=== PATIENT | female | born 1960 | race Caucasian/White ===

== ENCOUNTER → 2018-01-05 13:30 | Outpatient (CLI) | payer MEDICAID | END | disposition home or self-care (01) | LOC: D.US 13:30 | DX: N85.2 Hypertrophy of uterus (principal) ==

== ENCOUNTER → 2018-02-15 18:24 | Outpatient (CLI) | payer MEDICAID | END | disposition home or self-care (01) | LOC: D.MAMMO 01-21 14:00 | DX: Z12.31 Encounter for screening mammogram for malignant neoplasm of breast (principal) ==

== ENCOUNTER → 2018-07-13 09:32 | Outpatient (CLI) | payer MEDICAID | END | disposition home or self-care (01) | LOC: D.MRI 09:32 | DX: M25.551 Pain in right hip (principal); M54.16 Radiculopathy, lumbar region ==

== ENCOUNTER → 2018-10-19 08:04 | Outpatient (CLI) | payer MEDICAID | END | disposition home or self-care (01) | LOC: D.US 08:00 | DX: N93.9 Abnormal uterine and vaginal bleeding, unspecified (principal) ==

== ENCOUNTER → 2018-10-26 08:21 | Outpatient (CLI) | payer MEDICAID | END | disposition home or self-care (01) | LOC: D.MRI 08:21 | DX: M25.562 Pain in left knee (principal) ==

== ENCOUNTER → 2018-12-06 06:34 | Outpatient (CLI) | payer MEDICAID | END | disposition home or self-care (01) | LOC: D.MRI 06:34 | DX: M54.2 Cervicalgia (principal) ==

== ENCOUNTER 2019-07-18 10:30 | Outpatient (CLI) | payer MEDICAID | END 2019-07-18 11:00 | disposition home or self-care (01) | LOC: D.MAMMO 10:30 | PROVIDERS: ATTEND Family Medicine | DX: Z12.31 Encounter for screening mammogram for malignant neoplasm of breast (principal) ==

== ENCOUNTER → 2019-09-12 07:49 | Outpatient (CLI) | payer MEDICAID ==
[~2019-09-12 07:49] MED LIST: ARAVA10 MG PO; BUSPAR 15 MG TA15 MG PO; COZAAR100 MG PO; CYCLOBENZAPRINE10 MG PO; ESTRACE2 MG PO; HYDROCHLOROTH12.5 M1 PO; HYDROCODON-ACE1 EA10 PO; HYDROXYCHLOROQUINE S PO; LAMICTAL100 MG PO; LIPITOR20 MG PO; LYRICA75 MG PO; OMEPRAZOLE40 MG PO; PROVERA2.5 MG PO; RESTORIL15 MG PO; SEROQUEL50 MG PO; SPIRIVA18 MCG INH
--- NOTE | 2019-09-14 12:49 | ST ---
PATIENT:ROXY WILSON MEDICAL RECORD: [id number] SEX: F LOCATION:[facility] ORDER #: ADMISSION DATE: 09/12/19 AGE OF PATIENT: 59 REFERRING PHYSICIAN: INTERPRETING PHYSICIAN: JERMAINE MILLER MD DATE OF SERVICE: 09/12/2019 Nuclear Stress Test INDICATIONS: Angina, hypertension, and hyperlipidemia. The patient was exercised on standard Lexiscan protocol with 33 mCi of sestamibi injected at peak stress, 11 mCi used previously for rest images. FINDINGS: Gated SPECT reveals a preserved ejection fraction of 68% with decreased thickening and brightening throughout the inferior segments. SPECT Imaging: Cardiolite was used as myocardial perfusion agent. There is a fixed perfusion defect inferiorly compatible with previous inferior myocardial infarction; however, there is reversible ischemia anteriorly and septally, which includes basal, mid, apical anterior segments, apical septal, mid septal and basal septal. The degree of reversibility is moderate. The amount of myocardium involved between the 2 defects is large. OVERALL IMPRESSION: Intermediate-risk abnormal nuclear stress test, fixed perfusion defect inferiorly, reversible ischemia ongoing anteroseptally suggestive of multivessel coronary artery disease. TRANSINT:[id number] Voice Confirmation ID: [id number] DOCUMENT ID: [id number] JERMAINE MILLER MD at 1249 CC: CHLOE BAUMAN DO [id number] DICTATION DATE: 09/13/19 1548 GOLF STARTER AND RANGER: 09/13/19 2256 DEP CLI 09/12/[address] [address]
[2019-09-25 11:25] VITALS: BMI 30.8
== END | disposition home or self-care (01) ==
LOC: D.HCCARDIO 07:49
PROVIDERS: ATTEND Internal Medicine Interventional Cardiology
DX: I20.9 Angina pectoris, unspecified (principal)

== ENCOUNTER → 2019-09-21 14:16 | Outpatient (CLI) | payer MEDICAID ==
--- NOTE | 2019-09-22 12:01 | EC ---
PATIENT:ROXY WILSON DATE OF SERVICE: 09/21/19 SEX: F MEDICAL RECORD: [id number] DATE OF : 62 [facility] AGE OF PATIENT: 59 ADMISSION DATE: 09/21/19 REFERRING PHYSICIAN: INTERPRETING PHYSICIAN: GRACIE CARRANZA MD ECHOCARDIOGRAM REPORT ECHO CHARGES 4 ECHO COMPLETE Date: 09/21/19 CLINICAL DIAGNOSIS: ANGINA H/O HTN/PVD ECHOCARDIOGRAPHIC MEASUREMENTS (adult normal given) AC root (d.<3.7cm) 2.6 cm LV Septum d (<1.2 cm> 1.1 cm Valve Excursion 1.7 cm LV Septum (systole) 1.5 cm Left Atria (s.<4.0cm> 4.2 cm LVPW d(<1.2cm) 1.3 cm RV (d.<2.3cm) 2.6 cm LVPW (sytole) 1.7 cm LV diastole(<5.6CM) 4.4 cm MV E-F(>70mm/sec) cm LV systole 2.9 cm LVOT Diameter 1.9 cm MV exc.(>10mm) cm Est.ejection fraction (50-75%) % DOPPLER: LVIT cm/sec A 79.0 cm/sec E 48.0 cm/sec LA cm/sec RVSP 37.0 mmHg LVOT 101 cm/sec AOP1/2T m/s Asc. Ao 180 cm/sec RVOT 74.0 cm/sec RA cm/sec PA 106 cm/sec AV Gradient Peak 13.0 mmHg AV Mean 7.2 mmHg AV Area 1.6 cm MV Gradient Peak 3.0 mmHg MV Mean 1.3 mmHg MV Area cm COMMENTS: OP - HC Supervisor Wire Rope Fabrication: 1 RAYMUNDO NURIA Receiving Teller: 3 Dr. Stewart TAPE# PACS Pericardial Effusion N DATE OF SERVICE: Adequate 2D, color-flow and spectral Doppler, and M-mode. No LVH. LV internal dimensions are normal. Wall motion is normal. EF is greater than or equal to 55%. Aortic valve is tricuspid. No evidence of stenosis by Doppler interrogation. Left atrium is minimally dilated at 4.2 cm. Mitral valve shows no prolapse. Trace MR. Right-sided chambers are grossly normal. Trace TR. ECHOCARDIOGRAM REPORT [id number] ROXY WILSON TRANSINT:[id number] Voice Confirmation ID: [id number] DOCUMENT ID: [id number] GRACIE CARRANZA MD at 1201 CC: [id number] DICTATION DATE: 09/21/19 162 PAN PULLER: 09/21/191937 DEP CLI 09/21/19 [facility] [address] [id number]
[2019-09-25 11:25] VITALS: BMI 30.8
== END | disposition home or self-care (01) ==
LOC: D.HCCECHO 09-06 14:30
PROVIDERS: ATTEND Internal Medicine Interventional Cardiology
DX: I10 Essential (primary) hypertension (principal)

== ENCOUNTER 2019-09-25 10:47 | Outpatient (CLI) | payer MEDICAID ==
[~2019-09-25] VITALS: Ht 157.5 cm; Wt 76.4 kg
--- NOTE | ~2019-09-25 | HEMODYNAMI ---
PATIENT:ROXY WILSON MEDICAL RECORD: [id number] : 62 LOCATION:D.CAT ADMISSION DATE: 09/25/19 Generatedon:09/25/201914:13 Patient name: ROXY WILSON Patient #: [id number] : 1960 Date of study: 09/25/2019 Page: Of Hemodynamic Procedure Report Patient Data Patient Demographics Procedure consent was obtained First Name: ROXY Gender: Female Last Name: STEVE : 1960 [facility] Initial: MARISA Age: 59 year(s) Patient #: [id number] Race: Unknown SSN: [id number] Additional ID: [id number] Contact details Address: [address] [place] [address] State: [place] City: [place] Zip code: [address] Past Medical History Allergies: No known allergies Admission Admission Data Admission Date: 09/25/2019 Admission Time: 10:47 Arrival Date: 09/25/2019 Arrival Time: 0:00 Admit Source: Other Insurance Payor: Private health insurance [facility] #: [id number] Height (in.): 61.81 BSA: 1.77 (m2) Height (cm.): 157 BMI: 30.83 (kg/m2) Weight (lbs.): 167.55 Weight (kg.): 76 Lab Results Lab Result Date: 09/25/2019 Lab Result Time: 0:00 Biochemistry Name Units Result Min Max BUN mg/dl 7 --(*---)-- 7 18 Creatinine mg/dl 0.7 --(*---)-- 0.6 1.3 CBC Name Units Result Min Max Hemoglobin g/dl 12.7 -*(----)-- 13.5 17.5 Procedure Procedure Types Cath Procedure Diagnostic Procedure LHC LHC w/Coronaries Sedation Charges Moderate Sedation up to 15 minutes Procedure Description Procedure Date Procedure Date: 09/25/2019 Procedure Start Time: 13:48 Procedure End Time: 14:11 Procedure Staff Name Function Jocelyne Loza MD Ordering physician Brayden Pagan MD Performing Physician Elli Olivares RT Monitor Nga Hyatt RN Nurse Claribel Mg RT Scrub Nubia Eugene RT Scrub Procedure Data Cath Procedure Fluoroscopy Diagnostic fluoroscopy Total fluoroscopy Time: 5.6 time: 5.6 min min Diagnostic fluoroscopy Total fluoroscopy dose: 704 dose: 704 mGy mGy Contrast Material Contrast Material Type Amount (ml) Isovue 300 106 Entry Location Entry Primary Successful Side Size Upsize Upsize Entry Closure Dunham ccessful Closure Location (Fr) 1 (Fr) 2 (Fr) Remarks Device Remarks Radial Right 6 Fr Mechanical artery Short Compression Estimated blood loss: 5 ml Diagnostic catheters Device Type Used For End Catheter Placement DIAGNOSTIC [place] 110cm 5 Procedure Fr catheter (008093) DIAGNOSTIC JL 3.5 5Fr Procedure catheter ([id number]) DIAGNOSTIC Pigtail 5Fr Ventriculography catheter ([id number]) Procedure Complications No complications Procedure Medications Medication Administration Route Dosage 0.9% NaCl I.V. 100 ml/hr Oxygen etCO2 Nasal cannula 2 l/min Lidocaine 2% added to field 20 Heparin Flush Bag added to field 2 bags (1000units/500ml NS) Radial Cocktail added to field 1 syringe (Verapamil 2mg/Nitro 400mcg/Heparin 1500units) Versed I.V. 2 mg Fentanyl I.V. 50 mcg Fentanyl I.V. 50 mcg Hemodynamics Rest BSA: 1.77 (m2) HGB: 12.7 (g/dl) O2 Consumption: Estimated: 176.37 (ml/min) O2 Co nsumption indexed: Estimated:99.64 (ml/min/m) Heart Rate: 81 (bpm) Pressure Samples Time Site Value (mmHg) Purpose Heart Use Rate(bpm) 13:57 LV 96/13,11 Snapshot 83 Snapshots Pre Cath Intra NCS Post Cath Vital Signs Time Heart Resp SPO2 etCO2 NIBP (mmHg) Rhythm Pain Sedation Rate (ipm) (%) (mmHg) Status Level (bpm) 13:36:29 84 10 96 31 123/90(117) NSR 0 (11) 10(A) , No pain 13:41:28 86 10 99 37.3 Measuring NSR 0 (11) 10(A) , No pain 13:41:31 87 11 99 37.3 142/85(129) NSR 0 (11) 10(A) , No pain 13:45:47 81 21 98 33.6 137/79(118) NSR 0 (11) 10(A) , No pain 13:50:03 81 24 97 28.3 117/69(91) NSR 0 (11) 10(A) , No pain 13:54:15 82 21 97 35 115/65(86) NSR 0 (11) 10(A) , No pain 13:58:27 86 25 98 17.9 91/62(72) NSR 0 (11) 10(A) , No pain 14:03:11 85 18 96 43.2 119/78(107) NSR 0 (11) 10(A) , No pain 14:07:21 73 16 97 35 137/73(112) NSR 0 (11) 10(A) , No pain 14:11:33 84 17 98 41 134/76(109) NSR 0 (11) 10(A) , No pain Medications Time Medication Route Dose Verified Delivered Reason Notes E ffectiveness by by 13:39:03 0.9% NaCl I.V. 100 Brayden Sylvester used for ml/hr Ej Edmar procedure MD PERKINS 13:39:11 Oxygen etCO2 2 l/min Brayden Sylvester used for Nasal Ej Edmar procedure cannula MD PERKINS 13:39:15 Lidocaine 2% added 20ml Brayden Owen for local to vial Ej Ej anesthetic field MD SHARMA 13:39:19 Heparin Flush added 2 bags Brayden Owen used for Bag to Ej Ej procedure (1000units/500ml field MD SHARMA NS) 13:39:25 Radial Cocktail added 1 Brayden Owen used for (Verapamil to syringe Ej Ej procedure 2mg/Nitro field MD SHARMA 400mcg/Heparin 1500units) 13:39:39 Versed I.V. 2 mg Brayden Nga for Ej Edmar sedation MD PERKINS 13:39:44 Fentanyl I.V. 50 mcg Brayden Arredondoa for Ej Edmar sedation MD PERKINS 13:46:53 Fentanyl I.V. 50 mcg Brayden Arredondoa for Ej Edmar sedation MD PERKINSradiochemical technician Log Time Note 13:27:17 Informed consent obtained and on chart 13:30:04 Admit Source: Other 13:30:07 Arrival Date: 09/25/2019 12:00:00 AM 13:30:38 Insurance Payor : Private health insurance 13:33:31 Patient Height : 61.81 inches 13:33:34 Patient Weight : 167.55 lbs 13:34:08 Lab Result : Hemoglobin 12.7 g/dl 13:34:08 Lab Result : Creatinine 0.7 mg/dl 13:34:08 Lab Result : BUN 7 mg/dl 13:34:14 Diagnostic Cath Status : Elective 13:34:52 Procedure Status Elective Heart Cath (OP). 13:34:57 Nga Hyatt RN sent for patient. Start room use. 13:34:58 Time tracking: Regular hours (M-F 7:00 - 5:00) 13:35:03 Plan of Care:Hemodynamics will remain stable., Cardiac rhythm will remain stable., Comfort level will be maintained., Respiratory function will remain adequate., Patient/ family verbilizes understanding of procedure., Procedure tolerated without complication., Recovers from procedure without complications.. 13:35:18 Patient received from Pre/Post Procedure Room to CCL 2 Alert and oriented. Tansferred to table in Supine position. 13:35:20 Warm blankets applied, and sang hugger turned on for patient comfort. 13:35:20 Correct patient and procedure confirmed by team. 13:35:22 ECG and BP/O2 sat monitors applied to patient. 13:35:26 Vital chart was started 13:35:31 Full Disclosure recording started 13:35:36 H&P Date Dictated: 09/25/2019 Within 30 days and on chart.. 13:35:38 Pre-procedure instructions explained to patient. 13:35:40 Family in waiting room. 13:35:42 Patient NPO since Midnight. 13:35:50 Patient allergic to No known allergies 13:35:54 Is the patient allergic to Iodine/contrast media? No. 13:35:55 Was the patient premedicated? Yes 13:36:03 Is patient on blood thinner?No 13:36:17 Patient diabetic? No. 13:36:23 Snore? Yes 13:36:26 Sleep apnea? No 13:36:34 Patient pain scale 0/10 .. 13:36:49 IV patent on arrival in left forearm with 0.9% NaCl at [facility]. 13:36:54 Lab results completed and on chart. 13:38:08 Stress Test: yes; abnormal ? 13:38:14 Physician arrived 13:38:15 --------ALL STOP TIME OUT------ 13:38:19 Final Timeout: patient, procedure, and site verified with staff and physician. All members of the team are in agreement. 13:38:21 Right Radial & Right Groin site verified by team. 13:38:25 Fire Safety Assessment: A--An alcohol-based skin anteseptic being used preoperatively., C--Open oxygen or nitrous oxide is being used., D--An ESU, laser, or fiber-optic light is being used. 13:38:30 Physical assessment completed. ASA score P 3 - A patient with severe systemic disease as per Brayden Pagan MD. 13:38:38 1) 90+ Normal kidney functon but urine findings or structural abnormalities or genetic trait point to kidney disease. 13:38:52 Maximum allowable contrast dose (3.7 X eGFR X 0.75)250 ml. 13:38:58 Sedation plan: IV Moderate Sedation Medication:Versed, Fentanyl 13:39:03 0.9% NaCl 100 ml/hr I.V. was administered by Nga Hyatt RN; used for procedure; Verbal order read back and verified. 13:39:09 Use device set Radial Dx or PCI 13:39:10 ACIST Syringe (90966) opened to sterile field. 13:39:11 Oxygen 2 l/min etCO2 Nasal cannula was administered by Nga Hyatt RN; used for procedure; Verbal order read back and verified. 13:39:11 Medline Cath Pack (MDQL20432) opened to sterile field. 13:39:11 Bag Decanter () opened to sterile field. 13:39:12 ACIST Hand Control (61626) opened to sterile field. 13:39:12 ACIST Manifold (82812) opened to sterile field. 13:39:13 Tegaderm 4 x 4 (1626W) opened to sterile field. 13:39:14 MBrace Wrist Support (376913911) opened to sterile field. 13:39:15 Lidocaine 2% 20ml vial added to field was administered by Brayden Pagan MD; for local anesthetic; Verbal order read back and verified. 13:39:17 EMERALD Guide Wire (586-634) opened to sterile field. 13:39:18 SHEATH 6FR RAIN (5832672) opened to sterile field. 13:39:19 Heparin Flush Bag (1000units/500ml NS) 2 bags added to field was administered by Brayden Pagan MD; used for procedure; Verbal order read back and verified. 13:39:25 Radial Cocktail (Verapamil 2mg/Nitro 400mcg/Heparin 1500units) 1 syringe added to field was administered by Brayden Pagan MD; used for procedure; Verbal order read back and verified. 13:39:39 Versed 2 mg I.V. was administered by Nga Hyatt RN; for sedation; Verbal order read back and verified. 13:39:44 Fentanyl 50 mcg I.V. was administered by Nga Hyatt RN; for sedation; Verbal order read back and verified. 13:46:53 Fentanyl 50 mcg I.V. was administered by Nga Hyatt RN; for sedation; Verbal order read back and verified. 13:48:21 Procedure started. 13:49:23 Baseline sample Acquired. 13:49:46 Sharps counted by scrub and verified by R.N. 13:49:55 Right Radial & Right Groin area was prepped with chlora-prep and draped in sterile fashion 13:51:36 Zero performed for pressure channel P1 13:51:40 Zero performed for pressure channel P1 13:55:27 A 6 Fr Short sheath was inserted into the Right Radial artery 13:56:28 A DIAGNOSTIC [place] 110cm 5 Fr catheter (810305) was advanced over the wire and used for Procedure. 14:00:19 LV gram done using CIFUENTES 14:00:31 EF : 55 % 14:01:02 RCA angiography performed. 14:01:03 Catheter removed. 14:02:13 A DIAGNOSTIC JL 3.5 5Fr catheter (247496M) was advanced over the wire and used for Procedure. 14:02:21 LCA angiography performed. 14:04:28 Catheter removed. 14:04:44 A DIAGNOSTIC Pigtail 5Fr catheter (510361F) was advanced over the wire and used for Ventriculography. 14:05:04 LV gram done using CIFUENTES 14:08:10 Catheter removed. 14:08:25 Sheath removed intact; hemostasis achieved with Mechanical Compression to the Right Radial artery. 14:08:33 ZEPHYR REGULAR TR BAND (153072) opened to sterile field. 14:08:38 Procedure ended.(Physican Out) 14:10:00 Fluoroscopy time 05.60 minutes. 14:10:05 Fluoroscopy dose: 704 mGy 14:10:05 Flurop Dose total: 704 14:10:10 Dose Area Product 58173 mGy/cm. 14:10:14 Contrast amount:Isovue 300 106ml. 14:10:17 Maximum allowable dose exceeded? No. 14:10:18 Sharps counted by scrub and verified by R.N. 14:10:20 Bramwell band inflated with 12cc of air. 14:10:23 Insertion/operative site no bleeding no hematoma. 14:10:28 Post-op/insertion site Right Radial artery dressed using a 4 x 4 and Tegaderm. 14:10:35 Post right radial artery:stable 14:10:37 Post Procedure Pulses reassessed and unchanged 14:10:44 Post-procedure physical assessment completed. ASA score P 2 - A patient with mild systemic disease as per Brayden Pagan MD. 14:10:55 Post procedure rhythm: unchanged. 14:10:58 Estimated blood loss: 5 ml 14:11:00 Post procedure instruction explained to patient.Patient verbalizes understanding. 14:11:18 Procedure type changed to Cath procedure, Diagnostic procedure, LHC, LHC w/Coronaries, Sedation Charges, Moderate Sedation up to 15 minutes 14:11:20 Procedure and supply charges have been captured, reviewed, submitted and are correct. 14:11:42 Procedure Complication : No complications 14:11:44 Vital chart was stopped 14:11:47 Operative report dictated upon procedure completion. 14:11:48 See physician's report for complete and final results. 14:11:50 Report given to Pre/Post Procedure Room. 14:11:54 Patient transfered to Pre/Post Procedure Room with Stretcher. 14:11:56 Procedure ended. 14:11:56 Full Disclosure recording stopped 14:12:01 End room use (Document Last) 14:12:24 End room use (Document Last) 14:12:57 End room use (Document Last) Device Usage Item Name Manufacture Quantity Catalog Hospital Part Current Minima l Lot# / Number Charge Number Stock Stock Serial# Code [place] [address] 63160 138914 509884 233306 20 Syringe Medical (12400) Systems Inc Medline Medline 1 [id number] 603253 78758 223304 5 Cath Pack (ROHF12245) Bag Microtek 1 2001S 385562 22870 743131 5 Decanter Medical Inc. (2001S) ACIST Hand Acist 1 02550 335214 921774 929789 5 Control Medical (58687) Systems Inc ACIST Acist 1 07503 418600 793186 975608 5 Manifold Medical (23136) Systems Inc Tegaderm 4 3M 1 1626W 699122 138038 753573 5 x 4 (1626W) MBrace Advanced 1 140-0250-00 016076 74990 380340 5 Wrist Vascular Support Dynamics ([id number]) EMERALD Cardinal 1 502-455 249535 617612 600949 5 Guide Wire Health (621-455) SHEATH 6FR Cardinal 1 1341288 891810 2913557 946280 5 [facility] Health (0133050) DIAGNOSTIC Terumo 1 40-1477 400347 184649 415990 5 [place] 110cm 5 Fr catheter (389267) DIAGNOSTIC Cardinal 1 256665M 823135 203515 323885 5 JL 3.5 5Fr Health catheter (930814J) DIAGNOSTIC Cardinal 1 [id number] 713611 148970 660858 5 Pigtail 5Fr Health catheter (662382Y) ZEPHYR Cardinal 1 864788 160204 7844319 985727 5 REGULAR TR Health BAND (867741) Signature Audit Tanana Stage Time Signature Unsigned Intra-Procedure 09/25/2019 Elli Olivares 2:12:24 PM RT(R) Intra-Procedure 09/25/2019 Nga Hyatt 2:12:57 PM RN Intra-Procedure 09/25/2019 Brayedn Gilmore 2:13:23 PM Fox SHARMA Signatures Performing Physician : Signature : Brayden Pagan MD Date : Time : Monitor : Elli Olivares Signature : RT Date : Time : Nurse : Nga Hyatt RN Signature : Date : Time : [address] [address] [place] [address]
[2019-09-25] MEDS ORDERED: LYRICA75 MG PO (11:01)
[2019-09-25] MEDS ORDERED: RESTORIL15 MG PO (11:01)
[2019-09-25] MEDS ORDERED: HYDROCODON-ACE1 EA10 PO (11:01)
[2019-09-25] MEDS ORDERED: OMEPRAZOLE40 MG PO (11:02)
[2019-09-25] MEDS ORDERED: PROVERA2.5 MG PO (11:02)
[2019-09-25] MEDS ORDERED: COZAAR100 MG PO (11:02)
[2019-09-25] MEDS ORDERED: SEROQUEL50 MG PO (11:02)
[2019-09-25] MEDS ORDERED: SPIRIVA18 MCG INH (11:03)
[2019-09-25] MEDS ORDERED: ESTRACE2 MG PO (11:03)
[2019-09-25] MEDS ORDERED: CYCLOBENZAPRINE10 MG PO (11:03)
[2019-09-25] MEDS ORDERED: ARAVA10 MG PO (11:04)
[2019-09-25] MEDS ORDERED: HYDROCHLOROTH12.5 M1 PO (11:04)
[2019-09-25] MEDS ORDERED: BUSPAR 15 MG TA15 MG PO (11:04)
[2019-09-25] MEDS ORDERED: LIPITOR20 MG PO (11:05)
[2019-09-25] MEDS ORDERED: LAMICTAL100 MG PO (11:05)
[2019-09-25] MEDS ORDERED: HYDROXYCHLOROQUINE S PO (11:12)
[2019-09-25 11:25] VITALS: BP 110/84; Ht 157.5 cm; Wt 76.4 kg
[2019-09-25 11:45] LABS: BASOPHILS 0.3 % (0-2); EOSINOPHILS 3.6 % (0-7); HEMOGLOBIN 12.7 g/dL (12-16); IMMATURE GRANULOCYTES 0.2 % (0-5); LYMPHOCYTES 30.2 % (15-50); MCH 29.6 pg (26.0-34.0); MCHC 32.6 g/dL (31.0-37.0); MCV 90.9 fL (80.0-100.0); MEAN PLATELET VOLUME 11.2 fL (7.4-10.4); MONOCYTES 11.3 % (2-11); NEUTROPHILS 54.4 % (40-80); PLATELET COUNT 181 10x3/uL (130-400); RBC 4.29 10x6/uL (4.00-5.40); RDW 13.9 % (11.5-14.5); WBC 5.8 10x3/uL (4.8-10.8)
[2019-09-25 11:52] LABS: CALC OSMOLALITY 282 mosm/kg (275-300); CALCIUM 8.8 mg/dL (8.5-10.1); CARBON DIOXIDE 29.7 mmol/L (21.0-32.0); CHLORIDE - SERUM 106 mmol/L (98-107); CREATININE - SERUM 0.7 mg/dL (0.6-1.3); GLUCOSE 95 mg/dL (74-106); POTASSIUM - SERUM 3.7 mmol/L (3.5-5.1); SODIUM 143 mmol/L (136-145); UREA NITROGEN 7 mg/dL (7-18); eGFR NON AFRICAN AMERICAN > 90 mL/min (90-120)
[2019-09-25 12:23] LABS: CHOL - HDL RATIO 2.5 ratio (2.3-4.1); LDL-HDL RATIO 1.3 ratio (1.5-3.5)
--- NOTE | 2019-09-25 14:25 | NUR ---
PT ARRIVED BY BED. PLACED ON MONITORS. NO FAMILY AT BEDSIDE AT THIS TIME. VSS. ASSESSMENT COMPLETED. CALL LIGHT WITHIN REACH.
--- NOTE | 2019-09-25 14:40 | NUR ---
PT SITTING UP IN BED. WATCHING TELEVISION. VSS. RIGHT WRIST Z BAND IN PLACE. NO BLEEDING/HEMATOMA NOTED. CALL LIGHT WITHIN REACH. SET UP WITH DRINK AND SANDWICH TRAY AT THIS TIME.
--- NOTE | 2019-09-25 15:15 | NUR ---
2cc OF AIR REMOVED FROM Z BAND. TOLERATING WELL. VSS. NO S/S OF BLEEDING/HEMATOMA NOTED.
--- NOTE | 2019-09-25 15:30 | NUR ---
2cc OF AIR REMOVED FROM Z BAND. TOLERATING WELL. VSS. NO BLEEDING/HEMATOMA NOTED. CALL LIGHT WITHIN REACH. FAMILY AT BEDSIDE.
--- NOTE | 2019-09-25 15:45 | NUR ---
3cc OF AIR REMOVED FROM Z BAND. NO BLEEDING/HEMATOMA NOTED. CALL LIGHT WITHIN REACH. FAMILY AT BEDSIDE. DR. CARRANZA ROUNDED AND SPOKE WITH PT AND PT'S FAMILY.
--- NOTE | 2019-09-25 15:55 | NUR ---
3cc OF AIR REMOVED FROM Z BAND. NO BLEEDING/HEMATOMA NOTED. VSS. CALL LIGHT WITHIN REACH.
--- NOTE | 2019-09-25 16:10 | NUR ---
RIGHT WRIST Z BAND REMOVED AND DRESSING APPLIED. NO BLEEDING/HEMATOMA NOTED. RIGHT WRIST BRACE IN PLACE. PIV D/C'D WITH CATH TIP INTACT. TOLERATED WELL. PT INSTRUCTED TO GET UP AND DRESSED. DISCUSSED DISCHARGE INSTRUCTIONS WITH PT AND PT'S FAMILY. THEY VOICED UNDERSTANDING. PT GIVEN DOCTORS EXCUSE FOR WORK.
--- NOTE | 2019-09-25 16:25 | NUR ---
PT TO RESTROOM. VOIDED WITHOUT DIFFICULTY. RIGHT WRIST DRESSING C/D/I. NO S/S OF HEMATOMA NOTED. PT TAKEN OUT TO VEHICLE BY WHEELCHAIR. NO S/S OF DISTRESS NOTED. ALL BELONGINGS AND PAPERWORK IN HAND, INCLUDING WORK EXCUSE.
--- NOTE | 2019-09-26 14:43 | OP ---
PATIENT NAME: ROXY WILSON MEDICAL RECORD: [id number] :62 LOCATION:D.CAT ADMISSION DATE: SURGEON: GRACIE CARRANZA MD DATE OF OPERATION: 09/25/2019 PROCEDURE: Left heart catheterization, selective coronary angiography, right radial approach. CATHETERS: Gadsden catheter, radial sheath. The procedure was well tolerated. The patient returned to boyd. Sheath removed. TR band was placed. FINDINGS: Left ventriculography in 30-degree CIFUENTES view: Normal wall motion, normal systolic function. There was some staining of the myocardium with the Gadsden catheter. However, repeat LV gram with a pigtail catheter showed no evidence of any VSD or pericardial leak. CORONARY ANATOMY: LEFT MAIN: Left main is free of disease. LAD: Free of disease in the diagonal system. CIRCUMFLEX: Free of disease in the marginal system. RIGHT CORONARY ARTERY: Dominant artery, gives rise to PDA, free of disease. IMPRESSION: Normal LV systolic function, normal coronary anatomy. TRANSINT:[id number] Voice Confirmation ID: [id number] DOCUMENT ID: [id number] GRACIE CARRANZA MD at 1443 CC: [id number] DICTATION DATE: 09/25/19 1423 CASHIER CREDIT: 09/25/19 1522 DEP CLI 09/25/19 [facility] [address] [place] [address]
--- NOTE | 2019-09-26 14:43 | HP ---
PATIENT: ROXY WILSON MEDICAL RECORD: [id number] ACCOUNT: [id number] LOCATION:[facility] : 62 ADMISSION DATE: 09/25/19 PCP: CHLOE BAUMAN DO HISTORY AND PHYSICAL EXAMINATION HISTORY OF PRESENT ILLNESS: A 59-year-old female with history of hypertension, dyslipidemia been having progressive angina symptomatology over the past few months, progressed to the point with minimal exertion easily with class III symptoms. Nuclear stress testing which shows reversibility 2-vessel disease consistent with LAD and right. We are asked to see her concerning her cardiovascular status. Also, has history of peripheral vascular disease previously. PAST MEDICAL HISTORY: Includes; 1. History of PVD. 2. Hypertension. 3. Hyperlipidemia. MEDICATIONS: Include Lipitor 20 every day, BuSpar 15 b.i.d., Flexeril 10 t.i.d. p.r.n., hydrochlorothiazide 12.5 every day, Pray 5/325 every day, losartan 100 every day. ALLERGIES: None known. PHYSICAL EXAMINATION: GENERAL: Pleasant female in no acute distress, appears stated age. HEENT: Normocephalic, atraumatic. NECK: No JVD or bruit. HEART: Regular. LUNGS: Abbott clear. ABDOMEN: Soft, nontender. EXTREMITIES: Pulse 2+. No edema. IMPRESSION: Progressive angina. Nuclear stress testing consistent with 2-vessel disease, angiography, intervention based on the above. TRANSINT:[id number] Voice Confirmation ID: [id number] DOCUMENT ID: [id number] GRACIE CARRANZA MD at 1443 CC: [id number] DICTATION DATE: 09/25/19 1327 TERRAZZO WORKER: 09/25/19 1401 DEP CLI 09/25/19 [id number] [place] [address]
== END 2019-09-25 14:25 | disposition home or self-care (01) ==
LOC: D.CATH 10:47
PROVIDERS: ATTEND Internal Medicine Interventional Cardiology
DX: I20.9 Angina pectoris, unspecified (principal); I10 Essential (primary) hypertension; E78.5 Hyperlipidemia, unspecified; R94.30 Abnormal result of cardiovascular function study, unspecified

== ENCOUNTER 2019-11-15 11:02 | Outpatient (CLI) | payer OTHER ==
[~2019-11-15] VITALS: Ht 157.5 cm; Wt 77.3 kg
--- NOTE | ~2019-11-15 | HEMODYNAMI ---
PATIENT:ROXY WILSON MEDICAL RECORD: [id number] : 62 LOCATION:D.CAT ADMISSION DATE: 11/15/19 Generatedon:11/15/201913:46 Patient name: ROXY WILSON Patient #: [id number] : 1960 Date of study: 11/15/2019 Page: Of Hemodynamic Procedure Report Patient Data Patient Demographics Procedure consent was obtained First Name: ROXY Gender: Female Last Name: STEVE : 1960 [facility] Initial: MARISA Age: 59 year(s) Patient #: [id number] Race: Unknown SSN: [id number] Additional ID: [id number] Contact details Address: [address] [place] [address] State: [place] City: [place] Zip code: [address] Past Medical History Allergies: No known allergies Admission Admission Data Admission Date: 11/15/2019 Admission Time: 11:02 Procedure Procedure Types Cath Procedure Diagnostic Procedure Sedation Charges Moderate Sedation up to 15 minutes Peripheral Cath 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 Peripheral Procedures AFRO (Diagnostic) Procedure Description Procedure Date Procedure Date: 11/15/2019 Procedure Start Time: 13:37 Procedure End Time: 13:45 Procedure Staff Name Function Brayden Pagan MD Performing Physician Claribel Mg RT Monitor Elli Olivares RT Scrub Nga Hyatt RN Nurse Indication Angina Procedure Data Cath Procedure Fluoroscopy Diagnostic fluoroscopy Total fluoroscopy Time: 0.7 time: 0.7 min min Diagnostic fluoroscopy Total fluoroscopy dose: 159 dose: 159 mGy mGy Contrast Material Contrast Material Type Amount (ml) Isovue 300 54 Entry Location Entry Primary Successful Side Size Upsize Upsize Entry Closure Succes sful Closure Location (Fr) 1 (Fr) 2 (Fr) Remarks Device Remarks Femoral Right 5 Fr Exoseal artery Estimated blood loss: 5 ml Diagnostic catheters Device Type Used For End Catheter Placement DIAGNOSTIC IM 5Fr Multi-vessel catheter ([id number]) Angiography Procedure Complications No complications Procedure Medications Medication Administration Route Dosage 0.9% NaCl I.V. 100 ml/hr Oxygen etCO2 Nasal cannula 2 l/min Lidocaine 2% added to field 20 Heparin Flush Bag added to field 2 bags (1000units/500ml NS) Versed I.V. 2 mg Fentanyl I.V. 50 mcg Fentanyl I.V. 50 mcg Hemodynamics Rest Heart Rate: 85 (bpm) Snapshots Pre Cath Intra NCS Post Cath Vital Signs Time Heart Resp SPO2 etCO2 NIBP (mmHg) Rhythm Pain Sedation Rate (ipm) (%) (mmHg) Status Level (bpm) 13:26:26 82 15 98 0 Measuring NSR 0 (11) 10(A) , No pain 13:26:42 84 22 98 27 160/96(140) NSR 0 (11) 10(A) , No pain 13:30:54 79 16 99 22.6 139/83(118) NSR 0 (11) 10(A) , No pain 13:35:10 75 21 97 24.9 124/73(102) NSR 0 (11) 10(A) , No pain 13:39:22 77 19 99 16.6 128/72(108) NSR 0 (11) 10(A) , No pain 13:43:34 78 11 99 37 123/76(101) NSR 0 (11) 10(A) , No pain Medications Time Medication Route Dose Verified Delivered Reason Notes Eff ectiveness by by 13:24:46 0.9% NaCl I.V. 100 Brayden Nga used for ml/hr Ej Edmar procedure MD PERKINS 13:24:52 Oxygen etCO2 2 Brayden Nga used for Nasal l/min Ej Edmar procedure cannula MD PERKINS 13:24:57 Lidocaine 2% added 20ml Brayden Owen for local to vial Ej Ej anesthetic field MD SHARMA 13:25:02 Heparin Flush added 2 Brayden Owen used for Bag to bags Ej Ej procedure (1000units/500ml field MD SHARMA NS) 13:29:43 Versed I.V. 2 mg Brayden Arredondoa for Ej Edmar sedation MD PERKINS 13:29:52 Fentanyl I.V. 50 Brayden Arredondoa for mcg EjFox Hyatt sedation MD PERKINS 13:33:01 Fentanyl I.V. 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 Start room use. 13:19:59 Time tracking: Regular hours (M-F 7:00 - 5:00) 13:20:03 Plan of Care:Hemodynamics will remain stable., Cardiac rhythm will remain stable., Comfort level will be maintained., Respiratory function will remain adequate., Patient/ family verbilizes understanding of procedure., Procedure tolerated without complication., Recovers from procedure without complications.. 13:21:27 Patient received from Pre/Post Procedure Room to [facility] 2 Alert and oriented. Tansferred to table in Supine position. 13:21:29 Signed procedure consent form obtained from patient. 13:21:30 Warm blankets applied, and sang hugger turned on for patient comfort. 13:21:30 Correct patient and procedure confirmed by team. 13:21:31 ECG and BP/O2 sat monitors applied to patient. 13:24:36 Vital chart was started 13:24:46 0.9% NaCl 100 ml/hr I.V. was administered by Nga Hyatt RN; used for procedure; Verbal order read back and verified. 13:24:52 Oxygen 2 l/min etCO2 Nasal cannula was administered by Nga Hyatt RN; used for procedure; Verbal order read back and verified. 13:24:57 Lidocaine 2% 20ml vial added to field was administered by Brayden Pagan MD; for local anesthetic; Verbal order read back and verified. 13:25:02 Heparin Flush Bag (1000units/500ml NS) 2 bags added to field was administered by Brayden Pagan MD; used for procedure; Verbal order read back and verified. 13:26:29 Baseline sample Acquired. 13:26:33 Rhythm: sinus rhythm 13:26:34 Full Disclosure recording started 13::33 H&P Date Dictated: 11/15/2019 Within 30 days and on chart., H&P Addendum completed by physician on day of procedure. (MUST COMPLETE FOR ALL OUTPATIENTS). 13:27:34 Pre-procedure instructions explained to patient. 13:27:34 Pre-op teaching completed and patient verbalized understanding. 13:27:40 Family in patients room. 13:27:41 Patient NPO since Midnight. 13:27:43 Is the patient allergic to Iodine/contrast media? No. 13:27:44 Was the patient premedicated? Yes 13:27:46 Is patient on blood thinner?Yes 13:27:49 ACC The patient was administered the following blood thiners within the last 24 hours: Xarelto 13:27:53 Previous problem with sedation/anesthesia? No ? 13:27:59 Snore? No 13:28:00 Sleep apnea? No 13:28:01 Deviated septum? No 13:28:01 Opens mouth fully? Yes 13:28:02 Sticks out tongue? Yes 13:28:06 Airway obstruction? Yes copd 13:28:14 Dentures? Yes uppers in tight 13:28:18 Pre procedure: right dorsailis pedis pulse 1+ Palpable, but thready & weak; easily obliterated 13:28:20 Pre procedure: left dorsailis pedis pulse 1+ Palpable, but thready & weak; easily obliterated 13:28:22 Patient pain scale 0/10 ?. 13:28:27 IV patent on arrival in left forearm with 0.9% NaCl at [facility]. 13:28:29 Lab results completed and on chart. 13:28:35 Bilateral groins area was prepped with chlora-prep and draped in sterile fashion 13:28:36 Alarms reviewed by R. N. 13:28:36 Sharps counted by scrub and verified by R.N. 13:28:38 Physician arrived 13:28:38 --------ALL STOP TIME OUT------ 13:28:38 Final Timeout: patient, procedure, and site verified with staff and physician. All members of the team are in agreement. 13:28:41 Bilateral groins site verified by team. 13:29:18 Fire Safety Assessment: A--An alcohol-based skin anteseptic being used preoperatively., C--Open oxygen or nitrous oxide is being used., D--An ESU, laser, or fiber-optic light is being used. 13:29:21 Physical assessment completed. ASA score P 2 - A patient with mild systemic disease as per Brayden Pagan MD. 13:29:43 Versed 2 mg I.V. was administered by Nga Hyatt RN; for sedation; Verbal order read back and verified. 13:29:52 Fentanyl 50 mcg I.V. was administered by Nga Hyatt RN; for sedation; Verbal order read back and verified. 13:30:12 2) 60-89 Mildly reduced kidney function, and other findings (as for stage 1) point to kidney disease. 13:30:35 Maximum allowable contrast dose (3.7 X eGFR X 0.75)216 ml. 13:30:39 Sedation plan: IV Moderate Sedation Medication:Versed, Fentanyl 13:30:50 Use device set CATH PACK 13:30:52 ACIST Syringe (37791) opened to sterile field. 13:30:52 ACIST Hand Control (00200) opened to sterile field. 13:30:53 ACIST Manifold (10791) opened to sterile field. 13:30:53 Medline Cath Pack ([id number]) opened to sterile field. 13:30:53 Bag Decanter (2002S) opened to sterile field. 13:30:54 EMERALD Guide Wire (204-523) opened to sterile field. 13:30:59 SHEATH 5FR Ellsworth ([id number]) opened to sterile field. 13:33:01 Fentanyl 50 mcg I.V. was administered by Nga Hyatt RN; for sedation; Verbal order read back and verified. 13:37:00 Procedure started. 13:37:09 Local anesthetic to right femoral artery with Lidocaine 2% by Brayden Pagan MD.INITIAL ACCESS ONLY 13:37:21 A 5 Fr sheath was inserted into the Right Femoral artery 13:39:04 A DIAGNOSTIC IM 5Fr catheter ([id number]) was advanced over the wire and used for Multi-vessel Angiography. 13:41:30 Abdominal angiogram w/ runoff was performed. 13:41:35 Injector settings: Ml/sec: 10, Volume: 20, 13:42:00 Catheter removed. 13:42:19 EXOSEAL 5Fr (EX500) opened to sterile field. 13:42:39 Sheath removed intact; hemostasis achieved with Exoseal to the Right Femoral artery. 13:42:41 Procedure ended.(Physican Out) 13:43:07 Fluoroscopy time 00.70 minutes. 13:43:11 Fluoroscopy dose: 159 mGy 13:43:11 Flurop Dose total: 159 13:43:17 Dose Area Product 94381 mGy/cm. 13:43:22 Contrast amount:Isovue 300 54ml. 13:43:23 Maximum allowable dose exceeded? No. 13:43:25 Sharps counted by scrub and verified by R.N. 13:43:26 Insertion/operative site no bleeding no hematoma. 13:43:31 Post-op/insertion site Right Femoral artery dressed using a 4 x 4 and Tegaderm. 13:43:32 Post Procedure Pulses reassessed and unchanged 13:43:34 Post procedure rhythm: unchanged. 13:43:37 Estimated blood loss: 5 ml 13:43:38 Post procedure instruction explained to patient.Patient verbalizes understanding. 13:43:38 Patient needs reinforcement of post procedure teaching. 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 13:45:03 Procedure Complication : No complications 13:45:05 Vital chart was stopped 13:45:08 AFRO Findings: PVD: mild to moderate (<70%) 13:45:10 Operative report dictated upon procedure completion. 13:45:10 See physician's report for complete and final results. 13:45:44 Report given to Pre/Post Procedure Room. 13:45:48 Procedure ended. 13:45:48 Full Disclosure recording stopped 13:45:55 End room use (Document Last) 13:46:19 End room use (Document Last) 13:46:36 End room use (Document Last) Device Usage Item Name Manufacture Quantity Catalog Hospital Part Current Minimal L ot# / Number Charge Number Stock Stock Serial# Code ACIST Acist 1 14193 [id number] 408106 [id number] 20 Syringe Medical (02794) Systems Inc ACIST Hand Acist 1 77336 427485 441652 401592 5 Control Medical (57451) Systems Inc ACIST Acist 1 14209 121690 196256 785983 5 Manifold Medical (24119) Systems Inc Medline Medline 1 [id number] 291548 58437 034321 5 Cath Pack ([id number]) Bag Microtek 1 166917 28970 884368 5 Decanter Voalte Inc. () EMERALD Cardinal 1 502-455 276785 341412 654782 [address] [facility] (160-476) SHEATH 5FR Terumo 1 [id number] 321904 161393 787335 5 Ellsworth (CNL478) DIAGNOSTIC Cardinal 1 [id number] 518779 865192 941149 5 IM 5Fr Health catheter ([id number]) EXOSEAL 5Fr Cardinal 1 EX500 969078 657498 220455 10 (EX500) Health Signature Audit [place] Stage Time Signature Unsigned Intra-Procedure 11/15/2019 Claribel Mg 1:46:19 PM RT(R) Intra-Procedure 11/15/2019 Nga Hyatt 1:46:36 PM RN Intra-Procedure 11/15/2019 Brayden Gilmore 1:46:56 PM Fox SHARMA Signatures Performing Physician : Signature : Brayden Pagan MD Date : Time : Monitor : Claribel Mg RT Signature : Date : Time : Nurse : Nga Hyatt RN Signature : Date : Time : [facility] [address] [place] [address]
[2019-11-15] MEDS ORDERED: XARELTO10 MG (11:54)
[2019-11-15] MEDS ORDERED: ATROVENT HFA12.9 GM (11:55)
[2019-11-15 12:01] VITALS: BP 146/81; Ht 157.5 cm; Wt 77.3 kg
[2019-11-15 12:46] LABS: BASOPHILS 0.4 % (0-2); EOSINOPHILS 2.4 % (0-7); HEMATOCRIT 42.3 % (36.0-48.0); HEMOGLOBIN 13.8 g/dL (12-16); IMMATURE GRANULOCYTES 0.2 % (0-5); LYMPHOCYTES 33.3 % (15-50); MCH 30.1 pg (26.0-34.0); MCHC 32.6 g/dL (31.0-37.0); MCV 92.2 fL (80.0-100.0); MEAN PLATELET VOLUME 10.4 fL (7.4-10.4); MONOCYTES 9.4 % (2-11); NEUTROPHILS 54.3 % (40-80); PLATELET COUNT 197 10x3/uL (130-400); RBC 4.59 10x6/uL (4.00-5.40); WBC 5.4 10x3/uL (4.8-10.8)
[2019-11-15 12:48] LABS: CALC OSMOLALITY 280 mosm/kg (275-300); CALCIUM 9.2 mg/dL (8.5-10.1); CARBON DIOXIDE 29.5 mmol/L (21.0-32.0); CHLORIDE - SERUM 105 mmol/L (98-107); CREATININE - SERUM 0.8 mg/dL (0.6-1.3); GLUCOSE 89 mg/dL (74-106); POTASSIUM - SERUM 4.1 mmol/L (3.5-5.1); SODIUM 142 mmol/L (136-145); UREA NITROGEN 10 mg/dL (7-18); eGFR NON AFRICAN AMERICAN 78 mL/min (90-120)
[2019-11-15 13:36] LABS: LDL-HDL RATIO 0.9 ratio (1.5-3.5)
--- NOTE | 2019-11-15 13:55 | NUR ---
PT RECEIVED VIA STRECTHER FROM MUSHROOM GROWING SUPERVISOR FOR RECOVERY. PT AWAKE BUT DROWSY, PT DENIES PAIN OR DISCOMFORT. IV INFUSING VIA ORDERS TO L ARM. PT PLACED ON MACHINE TOOL BUILDER AND O2 ON VIA NC AT 2L. HR NSR RATE 86, BP 141/87, RR 12, SAT 96. R GROIN W 5FR EXOCELE, DRESSING CDI NO BLEEDING OR S/S HEMATOMA NOTED. LEG PINK AND WARM, PEDAL PULSES AUDIBLE W DOPPLER X4. PT INSTRUCTED TO KEEP HEAD ON PILLOW AND LEG STRAIGHT, SHE VERBALIZED UNDERSTANDING. CALL LIGHT IN REACH.
--- NOTE | 2019-11-15 14:15 | NUR ---
PT RESTING COMFORTABLY, DENIES PAIN OR DISCOMFORT. HR 75, BP 124/77, RR 12. R GROIN SOFT, DRESSING CDI NO S/S HEMATOMA. PEDAL PULSES AUDIBLE. SIPS OF CRANBERRY JUICE GIVEN PER REQUEST. CALL LIGHT IN REACH.
--- NOTE | 2019-11-15 14:58 | NUR ---
HOB ELEVATED SLIGHTLY, GROIN SOFT, DRESSING REMAINS CDI NO BLEEDING OR S/S HEMATOMA NOTED. SANDWICH TRAY AND DRINK SERVED. O2 REMOVED, SAT 97 ON ROOM AIR. CALL LIGHT IN REACH, DENIES OTHER NEEDS AT THIS TIME.
--- NOTE | 2019-11-15 15:35 | NUR ---
DISCHARGE INSTRUCTIONS REVIEWED W PT, SHE VERBALIZED UNDERSTANDING. IV REMOVED W CATH INTACT. MONITORS REMOVED. R GROIN REMAINS SOFT, DRESSING CDI NO BLEEDING OR S/S HEMATOMA NOTED. PT UP TO DRESS FOR DISCHARGE
--- NOTE | 2019-11-15 15:43 | NUR ---
PT AMBULATED TO BR, VOIDING W/O DIFFICULITY. PT THEN DISCHARGED VIA WC TO FAMILY WAITING IN PRIVATE VEHICLE. PT HAD ALL BELONGINGS AND DISCHARGE INFORMATION IN HAND.
--- NOTE | 2019-11-16 12:06 | OP ---
PATIENT NAME: ROXY WILSON MEDICAL RECORD: [id number] :62 LOCATION:D.CAT ADMISSION DATE: SURGEON: GRACIE CARRANZA MD DATE OF OPERATION: 11/15/2019 PROCEDURE: Aortofemoral runoff. CATHETERS USED: A 5-Mohawk sheath, internal mammary catheter. The procedure was well tolerated. The patient returned to the boyd, sheath removed. ExoSeal device placed. 1. The SKY catheter was placed in the level of renal arteries and abdominal aortic angiography was performed. This nonselective injection of the renal artery showed no evidence of stenosis. The abdominal aorta itself is smooth walled, no evidence of dissection, no evidence of aneurysm. 2. Left system: Left iliac system. The internal, external, and common no evidence of stenosis. Left femoral system - superficial, common, and deep showed no restenosis. Good 3-vessel runoff distally. 3. Right System: Right iliac system: Right common, internal, and external iliacs are free of disease. Femoral system - right femoral system. The common, superficial, deep again without significant disease and good 3-vessel runoff. IMPRESSION: No evidence of significant peripheral vascular disease. 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
== END 2019-11-15 15:44 | disposition home or self-care (01) ==
LOC: D.CATH 11:02
PROVIDERS: ATTEND Internal Medicine Interventional Cardiology
DX: I73.9 Peripheral vascular disease, unspecified (principal); I10 Essential (primary) hypertension; E78.5 Hyperlipidemia, unspecified

== ENCOUNTER 2020-07-17 10:00 | Outpatient (CLI) | payer OTHER ==
[2019-11-15 12:01] VITALS: BMI 31.1
[~2020-07-17 10:00] MED LIST changes: +ATROVENT HFA12.9 GM; +XARELTO10 MG
== END 2020-07-17 23:59 | disposition home or self-care (01) ==
LOC: D.MAMMO 10:00
PROVIDERS: ATTEND Family Medicine
DX: Z12.31 Encounter for screening mammogram for malignant neoplasm of breast (principal)